=== PATIENT | female | born 1980 | race Caucasian/White ===

== ENCOUNTER 2018-04-29 10:21 | Emergency (ER) | payer OTHER | END 2018-04-29 10:31 | disposition home or self-care (01) | LOC: E/R 10:21 | DX: J06.9 Acute upper respiratory infection, unspecified (principal) | CPT/HCPCS: 99283; Z7502 ==

== ENCOUNTER 2018-05-20 09:09 | Emergency (ER) | payer OTHER | END 2018-05-20 09:57 | disposition home or self-care (01) | LOC: FTE 09:09 | DX: H10.31 Unspecified acute conjunctivitis, right eye (principal); Z87.891 Personal history of nicotine dependence | CPT/HCPCS: 99283; Z7502 ==

== ENCOUNTER 2019-07-05 13:40 | Emergency (ER) | payer OTHER ==
[2019-07-05] MEDS: IBUPROFEN 600 MG TAB PO (14:26)
== END 2019-07-05 14:37 | disposition home or self-care (01) ==
LOC: FTE 13:40
DX: K08.89 Other specified disorders of teeth and supporting structures (principal)
CPT/HCPCS: 99283; Z7502